=== PATIENT | male | born 1995 | race Caucasian/White ===

== ENCOUNTER 2018-12-03 20:01 | Emergency (ER) | payer MEDICAID ==
[~2018-12-03] VITALS: Ht 182.9 cm; Wt 84.1 kg
[2018-12-03 20:11] VITALS: BP 106/79
[2018-12-03] MEDS ORDERED: AMOX500C2 PO (21:06)
== END 2018-12-03 21:15 | disposition home or self-care (01) ==
LOC: ER 20:02
DX: H66.92 Otitis media, unspecified, left ear (principal); R05 Cough
CPT/HCPCS: 99283